=== PATIENT | male | born 1975 | race Two or more races ===

== ENCOUNTER 2016-02-24 16:50 | Emergency (ER) | payer BC ==
[2016-02-24 17:10] VITALS: BP 123/83; PULSE 65; TEMP 98.1; BMI 25.5
--- NOTE | 2016-02-24 17:14 | PDOC ---
History of Present Illness - History of Present Illness Initial Comments: 02/24/16 17:22 Patient is a 41 year old male with significant medical hx of migraines who is presenting to the ED with three days of headache. Patient reports his headache is localized to the right side and is unlike his past migraines. The patient complains of associated nausea but denies any vomiting. Patient has taken motrin with some relief. He spoke with his PCP today who advised him to go to the ED for evaluation. Denies fever, chills, and photophobia. Social Hx: Denies alcohol use, tobacco use, and recreational drug use. Patient works as an EMT. <Cecilia Paredes - Last Filed: 02/24/16 18:41> <Rodolfo York - Last Filed: 02/24/16 19:05> - General Chief Complaint: Headache Stated Complaint: HEADACHE Time Seen by Provider: 02/24/16 16:53 Past History <Cecilia Paredes - Last Filed: 02/24/16 18:41> - Past Medical History GI Disorders: Yes (GERD) Disorders: Yes (CURRENTLY BEING TREATED FOR PROSTATITS) HTN: Yes Other medical history: MIGRANES - Surgical History Abdominal Surgery: No - Psycho/Social/Smoking Cessation Hx Anxiety: No Suicidal Ideation: No Smoking History: Never smoked Have you smoked in the past 12 months: No Information on smoking cessation initiated: No Hx Alcohol Use: No Drug/Substance Use Hx: No Substance Use Type: Alcohol <Rodolfo York - Last Filed: 02/24/16 19:05> - Past Medical History Allergies/Adverse Reactions: Allergies Allergy/AdvReac Type Severity Reaction Status Date / Time amoxicillin Allergy Hives Verified 02/24/16 16:55 Home Medications: Ambulatory Orders Propranolol HCl 10 mg PO DAILY PRN 08/17/14 Eletriptan Hydrobromide [Relpax] 40 mg PO PRN PRN 09/06/14 Diphenhydramine HCl [Benadryl -] 25 mg PO Q8H #90 capsule 02/24/16 Naproxen [EC-Naprosyn] 375 mg PO BID #14 tablet.ec 02/24/16 Ondansetron [Ondansetron Odt] 8 mg PO TID #14 tab.rapdis 02/24/16 Sulfamethoxazole/Trimethoprim [Bactrim Ds -] 1 tab PO BID 02/24/16 Review of Systems - Review of Systems Comments:: 02/24/16 17:24 CONSTITUTIONAL: Absent: fever, chills, diaphoresis, generalized weakness, malaise, loss of appetite HEENT: Absent: rhinorrhea, nasal congestion, throat pain, throat swelling, difficulty swallowing, mouth swelling, ear pain, eye pain, visual changes CARDIOVASCULAR: Absent: chest pain, syncope, palpitations, irregular heart rate, lightheadedness , peripheral edema RESPIRATORY: Absent: cough, shortness of breath, dyspnea with exertion, orthopnea, wheezing, stridor, hemoptysis GASTROINTESTINAL: Present: nausea Absent: abdominal pain, abdominal distension, vomiting, diarrhea, constipation, melena, hematochezia GENITOURINARY: Absent: dysuria, frequency, urgency, hesitancy, hematuria, flank pain, genital pain MUSCULOSKELETAL: Absent: myalgia, arthralgia, joint swelling SKIN: Absent: rash, itching, pallor HEMATOLOGIC/IMMUNOLOGIC: Absent: easy bleeding, easy bruising, lymphadenopathy, frequent infections ENDOCRINE: Absent: unexplained weight gain, unexplained weight loss, heat intolerance, cold intolerance NEUROLOGIC: Present: headache Absent: focal weakness or paresthesia, dizziness, unsteady gait, seizure, mental status changes, bladder or bowel incontinence. PSYCHIATRIC: Absent: anxiety, depression, suicidal or homicidal ideation, hallucinations <Cecilia Paredes - Last Filed: 02/24/16 18:41> *Physical Exam - Vital Signs Last Vital Signs Temp Pulse Resp BP Pulse Ox 98.1 F 65 16 123/83 99 02/24/16 17:03 02/24/16 17:03 02/24/16 17:03 02/24/16 17:03 02/24/16 17:03 - Physical Exam Comments: 02/24/16 17:25 GENERAL: Well developed, well nourished. Awake and alert. No acute distress. HEENT: Normocephalic, atraumatic. PERRLA, EOMI. No conjunctival pallor. Sclera are non- icteric. Moist mucous membranes. Oropharynx is clear. NECK: Supple. Full ROM. No JVD. Carotid pulses 2+ and symmetric, without bruits. No thyromegaly. No lymphadenopathy. CARDIOVASCULAR: Regular rate and rhythm. No murmurs, rubs, or gallops. Distal pulses are 2+ and symmetric. PULMONARY: No evidence of respiratory distress. Lungs clear to auscultation bilaterally. No wheezing, rales or rhonchi. ABDOMINAL: Soft. Non-tender. Non-distended. No rebound or guarding. No organomegaly. Normoactive bowel sounds. MUSCULOSKELETAL: Normal range of motion at all joints. No bony deformities or tenderness. No CVA tenderness. EXTREMITIES: No cyanosis. No clubbing. No edema. No calf tenderness. SKIN: Warm and dry. Normal capillary refill. No rashes. No jaundice. NEUROLOGICAL: Alert, awake, appropriate. Cranial nerves 2-12 intact. Normal speech. Gait is normal without ataxia. PSYCHIATRIC: Cooperative. Good eye contact. Appropriate mood and affect. <Cecilia Paredes - Last Filed: 02/24/16 18:41> - Vital Signs Last Vital Signs Temp Pulse Resp BP Pulse Ox 98.1 F 65 16 123/83 99 02/24/16 17:03 02/24/16 17:03 02/24/16 17:03 02/24/16 17:03 02/24/16 17:03 <Rodolfo York - Last Filed: 02/24/16 19:05> ED Treatment Course - RADIOLOGY Radiograph Interpretation: 02/24/16 18:[address] Impression: No CT evidence of acute intracranial pathology. Reported By: Johann Jones MD <Cecilia Paredes - Last Filed: 02/24/16 18:41> Medical Decision Making - Medical Decision Making 02/24/16 18:21 Patient complains that his headache has been progressing. Will give migraine cocktail: benadryl, zofran, toradol. <Cecilia Paredes - Last Filed: 02/24/16 18:41> *DC/Admit/Observation/Transfer - Attestations Scribe Attestion: 02/24/16 17:25 Documentation prepared by Cecilia Paredes, acting as medical doctor nuclear medicine for Rodolfo York MD. <Cecilia Paredes - Last Filed: 02/24/16 18:41> - Discharge Dispostion Admit: No <Rodolfo York - Last Filed: 02/24/16 19:05> Diagnosis at time of Disposition: Headache Qualifiers: Headache type: tension-type Headache chronicity pattern: acute headache Intractability: not intractable Qualified Code(s): G44.209 - Tension-type headache, unspecified, not intractable - Discharge Dispostion Disposition: HOME Condition at time of disposition: Stable - Prescriptions Prescriptions: Diphenhydramine HCl [Benadryl -] 25 mg PO Q8H #90 capsule Naproxen [EC-Naprosyn] 375 mg PO BID #14 tablet.ec Ondansetron [Ondansetron Odt] 8 mg PO TID #14 tab.rapdis - Patient Instructions Printed Discharge Instructions: DI for Migraine - Post Discharge Activity Work/School Note: Back to Work
[2016-02-24] MEDS ORDERED: KETOROLAC TROMETHAMINE 30 MG/1 ML VIAL IVPUSH ONE (18:20)
[2016-02-24] MEDS ORDERED: ONDANSETRON 4 MG/2 ML VIAL IVPUSH ONE (18:24)
[2016-02-24] MEDS ORDERED: ONDANSETRON 4 MG/2 ML VIAL ONE (18:30)
[2016-02-24] MEDS ORDERED: KETOROLAC TROMETHAMINE 30 MG/1 ML VIAL ONE (18:30)
== END 2016-02-24 19:08 | disposition home or self-care (01) ==
LOC: FER 16:50
PROC: 3E0333Z Introduction of Anti-inflammatory into Peripheral Vein, Percutaneous Approach (ICD-10-PCS; principal; 2016-02-24)
PROC: 3E033GC Introduction of Other Therapeutic Substance into Peripheral Vein, Percutaneous Approach (ICD-10-PCS; 2016-02-24)
PROC: 3E0337Z Introduction of Electrolytic and Water Balance Substance into Peripheral Vein, Percutaneous Approach (ICD-10-PCS; 2016-02-24)
DX: G44.209 Tension-type headache, unspecified, not intractable (principal); I10 Essential (primary) hypertension; K21.9 Gastro-esophageal reflux disease without esophagitis
CPT/HCPCS: 70450-TC; 99282-25

== ENCOUNTER 2021-09-08 01:43 | Emergency (ER) | payer BC ==
[2021-09-08 02:01] VITALS: TEMP 97.9; BMI 28.7
[2021-09-08 02:41] VITALS: RESP 16
[2021-09-08 03:03] LABS: BASO % 1.1 % (0-2.0); EOS % 1.9 % (0-4.5); HEMATOCRIT 43.9 % (35.4-49); HEMOGLOBIN 14.8 GM/dL (11.7-16.9); LYMPH % 29.6 % (8-40); MCH 27.8 pg (25.7-33.7); MCHC 33.8 g/dl (32.0-35.9); MEAN CELL VOLUME 82.3 fl (80-96); MEAN PLT VOLUME 10.4 fl (7.5-11.1); NEUT % 60.4 % (42.8-82.8); PLATELET COUNT 180 10^3/uL (134-434); RBC 5.33 M/mm3 (4.00-5.60); RDW 13.2 % (11.9-15.9); WHITE BLOOD COUNT 8.1 K/mm3 (4.0-10.0)
[2021-09-08 03:14] VITALS: BP 122/83; PULSE 50
[2021-09-08 03:24] LABS: CALCIUM 9.1 mg/dL (8.5-10.1)
[2021-09-08 03:25] LABS: ALBUMIN 4.2 g/dl (3.4-5.0); BLOOD UREA NITROGEN 15.7 mg/dL (7-18)
[2021-09-08 03:30] LABS: BILIRUBIN,TOTAL 0.6 mg/dL (0.2-1); TOT PROT 7.2 g/dl (6.4-8.2)
== END 2021-09-08 06:02 | disposition home or self-care (01) ==
LOC: FER 01:43
DX: R07.9 Chest pain, unspecified (principal); R00.2 Palpitations
CPT/HCPCS: 0241U-QW; 36415; 80053; 84484; 85025; 93005; 99284-25